=== PATIENT | male | born 1970 | race Caucasian/White ===

== ENCOUNTER 2021-10-24 04:05 | Emergency (ER) | payer BC ==
[2021-10-24] MEDS ORDERED: Magnesium Hydroxide 400 MG/5 ML Susp 30 ML Cup PO ONE (05:45)
--- NOTE | 2021-10-24 08:49 | EDM.PDOC ---
ED HPI GENERAL MEDICAL PROBLEM - General Chief Complaint: Gastrointestinal Problem Stated Complaint: constipation Time Seen by Provider: 10/24/21 04:09 Source of Information: Reports: Patient History Limitations: Reports: No Limitations - History of Present Illness INITIAL COMMENTS - FREE TEXT/NARRATIVE: Pt. presents to ER with complaints of inability to have a BM. Pt. states that he has not had a BM fof 4 days since having a hernia surgery last week. He denies any fever or chills. No chest pain or shortness of breath. Pt. denies any bloody or tarry stools. He states that he can feels gas borborygmi but states that he has not been passing much. He states that he feels he has a BM at the rectum that he is unable to pass. Onset: Today - Related Data Allergies Allergy/AdvReac Type Severity Reaction Status Date / Time No Known Allergies Allergy Verified 10/24/21 04:28 Social & Family History - Tobacco Use Tobacco Use Status *Q: Never Tobacco User Second Hand Smoke Exposure: No - Recreational Drug Use Recreational Drug Use: No ED ROS GENERAL - Review of Systems Review Of Systems: See Below Constitutional: Reports: No Symptoms HEENT: Reports: No Symptoms Respiratory: Reports: No Symptoms Cardiovascular: Reports: No Symptoms Endocrine: Reports: No Symptoms GI/Abdominal: Reports: Abdominal Pain (small amount of abdominal cramping, denies any significant pain, other than discomfort in rectal area.), Constipation. Denies: Black Stool, Bloody Stool : Reports: No Symptoms Musculoskeletal: Reports: No Symptoms ED EXAM, GENERAL - Physical Exam Exam: See Below Exam Limited By: No Limitations General Appearance: Alert, WD/WN, No Apparent Distress GI/Abdominal: Normal Bowel Sounds, Soft, Tender (mildly tender), Other (surgical markings/evidence or recent surgery). No: Guarding, Rigid, Rebound Course - Vital Signs Last Recorded V/S: Last Vital Signs Temp 36.1 C 10/24/21 04:05 Pulse 48 L 10/24/21 04:05 Resp 16 10/24/21 04:05 BP 140/72 10/24/21 04:05 Pulse Ox 98 10/24/21 04:05 - Orders/Labs/Meds Meds: Medications Discontinued Medications Generic Name Dose Route Start Last Admin Trade Name Freq PRN Reason Stop Dose Admin Magnesium Hydroxide 30 ml 10/24/21 05:45 10/24/21 05:49 Magnesium Hydroxide 400 Mg/5 Ml Susp 30 Ml Cup PO 10/24/21 05:46 30 ml ONETIME ONE Administration - Re-Assessments/Exams Free Text/Narrative Re-Assessment/Exam: Pt. was given a fleet enema with minimal result. He was then given a soap suds enema with warm water and had a significant BM and reported feeling much improved. Departure - Departure Time of Disposition: 05:30 Disposition: Home, Self-Care 01 Clinical Impression: Constipation - Discharge Information Instructions: Magnesium Hydroxide oral suspension, Fecal Impaction, Polyethylene Glycol Powder for Oral Solution Referrals: PCP,None [Primary Care Provider] - Forms: ED Department Discharge Additional Instructions: Milk of mag 15-30 ml once daily for the next 3 days Mirlalax powder 17 gm (1 capful) daily mixed in water. I suggest drinking a couple more glasses of water with this, and also advise you to increase your water consumption thoughout the day. I would do the miralax for about 2 weeks, or until you are consistently having soft, bulky bowel movements. Increase consumption of vegetables, decrease consumption of starches and fats. Sepsis Event Note (ED) - Evaluation Sepsis Screening Result: No Definite Risk - Focused Exam Vital Signs: Vital Signs Temp Pulse Resp BP Pulse Ox 10/24/21 04:05 36.1 C 48 L 16 140/72 98 - Problem List Review Problem List Initiated/Reviewed/Updated: Yes - Assessment/Plan Plan: Milk of mag 15-30 ml once daily for the next 3 days Mirlalax powder 17 gm (1 capful) daily mixed in water. I suggest drinking a couple more glasses of water with this, and also advise you to increase your water consumption thoughout the day. I would do the miralax for about 2 weeks, or until you are consistently having soft, bulky bowel movements. Increase consumption of vegetables, decrease consumption of starches and fats.
== END 2021-10-24 06:00 | disposition home or self-care (01) ==
LOC: VM.ED 04:05
DX: K59.00 Constipation, unspecified (principal)
CPT/HCPCS: 99283; A9270-GY